=== PATIENT | male | born 1965 | race Caucasian/White ===

== ENCOUNTER 2019-03-17 17:43 | Emergency (ER) | payer OTHER ==
[~2019-03-17] VITALS: Ht 175.3 cm; Wt 83.9 kg
[2019-03-17] MEDS ORDERED: XIGDUO XR 10 M1 EAC1 (18:16)
== END 2019-03-17 21:45 | disposition home or self-care (01) ==
LOC: ER 17:43
DX: K52.9 Noninfective gastroenteritis and colitis, unspecified (principal)